=== PATIENT | female | born 1985 | race Caucasian/White ===

== ENCOUNTER 2021-02-05 13:20 | Emergency (ER) | payer BC, OTHER ==
[~2021-02-05 13:20] MED LIST: CELEXA20 MG PO; ERYTHROMYCIN OP1 GM OP; PHENERGAN 12.12.5 M1 PO; PNV 29-1 TABLE1 EACH PO; PROTONIX 40 MG40 M1 PO; STELARA90 MG/1 ML SQ; TYLENOL 325MG325 MG PO
[2021-02-05 14:35] LABS: HEMOGLOBIN 13.3 gm/dl (12.3-15.3); RED BLOOD COUNT 5.02 M/UL (4.00-5.10); WHITE BLOOD COUNT 7.2 K/UL (4.5-11.0)
[2021-02-05 14:55] LABS: BUN/CREATININE RATIO 14 (0-10)
== END 2021-02-05 19:10 | disposition home or self-care (01) ==
LOC: ER1 13:20
PROVIDERS: Physician Assistant
DX: N83.8 Other noninflammatory disorders of ovary, fallopian tube and broad ligament (principal); Z93.3 Colostomy status
CPT/HCPCS: 80053; 81001; 83690; 84703; 85025; 99284; Q9967